=== PATIENT | male | born 1985 | race Caucasian/White ===

== ENCOUNTER 2020-05-30 17:19 | Emergency (ER) | payer OTHER ==
[2020-05-30] MEDS ORDERED: DIPH/PERTUSS(ACELL)/TETANUS VAC/PF 0.5 ML SYR (>=10YO) IM ONE (17:56)
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
--- NOTE | 2020-05-30 18:56 | RADIOLOGY REPORT (SQ) ---
EXAM DESCRIPTION: CLAVICLE LEFT IMAGES COMPLETED DATE/TIME: 05/30/2020 6:28 pm REASON FOR STUDY: Injury COMPARISON: None. NUMBER OF VIEWS: Two views. TECHNIQUE: Frontal and angled images were acquired of the left clavicle. LIMITATIONS: None. FINDINGS: MINERALIZATION: Normal. BONES: Comminuted fracture of the mid clavicle with overriding of the fracture ends. SOFT TISSUES: No obvious swelling or foreign body. OTHER: No other significant finding. IMPRESSION: Left clavicle fracture. TECHNICAL DOCUMENTATION: JOB ID: [id number] 2010 [employer]- All Rights Reserved Reading location - IP/workstation name: [email or web address]
[2020-05-30] MEDS ORDERED: IBUPROFEN 800 MG TABLET PO ONE (19:56)
[2020-05-30] MEDS ORDERED: IBUPROFEN 800 MG TABLET ONE (20:00)
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
[2020-05-30 20:18] VITALS: BP 136/79
== END 2020-05-30 20:16 | disposition home or self-care (01) ==
LOC: ER 17:19
DX: S42.022A Displaced fracture of shaft of left clavicle, initial encounter for closed fracture (principal); S80.212A Abrasion, left knee, initial encounter; R07.89 Other chest pain; Y04.8XXA Assault by other bodily force, initial encounter; Z23 Encounter for immunization
CPT/HCPCS: 71111; 90471; 90715; 99284